=== PATIENT | male | born 1955 | race Caucasian/White ===

== ENCOUNTER → 2019-01-09 | Outpatient (CLI) | payer MEDICARE ==
[~2019-01-09] MED LIST: ASCO100T15 PO; DOC100 PO; FAM20 PO; HERBAL SUPPLEMENTS; HYDR-3140 PO; HYDR-393 PO; IBU600 PO; LYSI500T34 PO; MILK87.5 PO; PER PO; SELE200T32 PO; UBID10CA PO; VITA1CAP46 PO; [UNRECOGNIZED DRUG - CODE] PO
== END ==
LOC: LAB 08:08
PROVIDERS: ATTEND Family Medicine
DX: R53.83 Other fatigue (principal); E11.9 Type 2 diabetes mellitus without complications; M54.5 Low back pain; E55.9 Vitamin D deficiency, unspecified